=== PATIENT | female | born 1960 | race Hispanic/Latino ===

== ENCOUNTER 2017-12-18 21:09 | Emergency (ER) | payer BC ==
[2017-12-18 21:09] VITALS: BMI 23.1
[2017-12-18 21:51] VITALS: TEMP 99.1; O2SAT 99
[2017-12-18] MEDS ORDERED: Silver Sulfadiazine 1% Cream (25 gm) TP STA (22:06)
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
[2017-12-18 22:36] VITALS: BP 118/74; PULSE 72; RESP 18
== END 2017-12-18 22:35 | disposition home or self-care (01) ==
LOC: ED 21:09
DX: T22.211D Burn of second degree of right forearm, subsequent encounter (principal); X15.8XXD Contact with other hot household appliances, subsequent encounter

== ENCOUNTER 2018-11-07 14:34 | Outpatient (CLI) | payer BC | END 2018-11-07 14:35 | disposition home or self-care (01) | LOC: RAD 14:34 ==